=== PATIENT | male | born 1935 | race Two or more races ===

== ENCOUNTER 2020-03-02 09:51 | Inpatient (IN) | payer OTHER ==
[~2020-03-02] VITALS: Ht 167.6 cm; Wt 50.3 kg
[~2020-03-02 09:51] MED LIST: AVAPRO150 MG
[2020-03-03] MEDS ORDERED: NITROGLYCERIN0.4 MG (13:14)
[2020-03-03] MEDS ORDERED: LEVOTHYROXINE25 MC1 (13:14)
== END 2020-03-19 14:07 | disposition expired | DRG 870 ==
LOC: ER 09:51 → SURH 20:03 → MEDJ 20:03
PROVIDERS: ADMIT Internal Medicine; ATTEND Internal Medicine
PROC: 4A033R1 Measurement of Arterial Saturation, Peripheral, Percutaneous Approach (ICD-10-PCS; 2020-03-02)
PROC: 3E0F7SF Introduction of Other Gas into Respiratory Tract, Via Natural or Artificial Opening (ICD-10-PCS; 2020-03-02)
PROC: BW28ZZZ Computerized Tomography (CT Scan) of Head (ICD-10-PCS; 2020-03-02)
PROC: B24BZZZ Ultrasonography of Heart with Aorta (ICD-10-PCS; 2020-03-03)
PROC: CB2YYZZ Tomographic (Tomo) Nuclear Medicine Imaging of Respiratory System using Other Radionuclide (ICD-10-PCS; 2020-03-04)
PROC: 5A09557 Assistance with Respiratory Ventilation, Greater than 96 Consecutive Hours, Continuous Positive Airway Pressure (ICD-10-PCS; 2020-03-06)
PROC: 0BH17EZ Insertion of Endotracheal Airway into Trachea, Via Natural or Artificial Opening (ICD-10-PCS; principal; 2020-03-11)
PROC: 5A1955Z Respiratory Ventilation, Greater than 96 Consecutive Hours (ICD-10-PCS; 2020-03-11)
PROC: 4A12X4Z Monitoring of Cardiac Electrical Activity, External Approach (ICD-10-PCS; 2020-03-11)
DX: A41.9 Sepsis, unspecified organism (principal); J96.01 Acute respiratory failure with hypoxia; B37.1 Pulmonary candidiasis; J18.9 Pneumonia, unspecified organism; N39.0 Urinary tract infection, site not specified; I24.9 Acute ischemic heart disease, unspecified; I50.32 Chronic diastolic (congestive) heart failure; B96.29 Other Escherichia coli [E. coli] as the cause of diseases classified elsewhere; Z20.822 Contact with and (suspected) exposure to COVID-19; I25.10 Atherosclerotic heart disease of native coronary artery without angina pectoris; F03.90 Unspecified dementia, unspecified severity, without behavioral disturbance, psychotic disturbance, mood disturbance, and anxiety; Z74.01 Bed confinement status; E03.8 Other specified hypothyroidism; I11.0 Hypertensive heart disease with heart failure